=== PATIENT | female | born 1990 | race Caucasian/White ===

== ENCOUNTER 2016-09-23 11:42 | Emergency (ER) | payer MEDICAID ==
[2016-09-23 11:52] VITALS: O2SAT 98
[2016-09-23] MEDS ORDERED: oxyCODONE IR 5 MG TAB PO ONE (12:08)
--- NOTE | 2016-09-23 12:13 | EDPHY ---
H & P Time Seen by Provider: 09/23/16 11:57 HPI/ROS: CHIEF COMPLAINT: Right hand and wrist pain HISTORY OF PRESENT ILLNESS: 26-year-old [id number] female complaining of acute right ulnar hand and wrist pain after she in a mechanical fall last evening. No head injury. No paresthesia. No sensory deficit. PHYSICAL EXAM (Prior to examination, patient consented to physical exam, hands were washed and my usual and customary physical exam procedures followed) 1) GENERAL: Well-developed, well-nourished, alert and oriented. Appears to be in no acute distress. 2) HEAD: Normocephalic 3) HEENT: Pupils equal, round, reactive to light bilaterally. 4) LUNGS: Breathing comfortably. 5) MUSCULOSKELETAL: Soft compartments. Ecchymosis right 5th metacarpal and right ulnar wrist. Associated tenderness to same location. 6) SKIN: intact 7) VASCULAR: pulses and cap refill present are brisk 8) NEUROLOGIC: Radial, ulnar, median nerve function intact with no deficits appreciated on exam DIFFERENTIAL DIAGNOSIS: in no particular order including but not limited to fracture, sprain, compartment syndrome Xray of the right hand and wrist interpreted by myself: no definitive acute osseous abnormality Procedure: Splint And ulna Ortho Glasssplint was applied by ER marine electronics technician. After application of the splint I returned and re-examined the patient. The splint was adequately immobilizing the joint and distal to the splint the patient's circulation and sensation were intact. Patient shows no signs of compartment syndrome. Was given orthopedic precautions. Smoking Status: Never smoked Constitutional: Initial Vital Signs Temperature (C) 36.2 C 09/23/16 11:50 Heart Rate 100 09/23/16 11:50 Respiratory Rate 15 09/23/16 11:50 Blood Pressure 111/78 09/23/16 11:50 O2 Sat (%) 98 09/23/16 11:50 O2 Delivery Mode Room Air Allergies/Adverse Reactions: acetaminophen [From Tylenol] Allergy (Verified 09/23/16 11:52) amoxicillin Allergy (Verified 09/23/16 11:53) hydrocodone [From Vicodin] Allergy (Verified 09/23/16 11:53) latex Allergy (Verified 09/23/16 11:53) shellfish derived Allergy (Verified 09/23/16 11:53) ibprofen Allergy (Uncoded 09/23/16 11:52) Home Medications: Medication Instructions Recorded Neurontin 09/23/16 Oxycodone HCl [Oxyir] 5 mg PO Q6 PRN #10 capsule 09/23/16 Sulfacetamide Sodium 09/23/16 MDM/Departure - MDM Imaging Results: Imaging Impressions Hand X-Ray 09/23/16 11:57 Impression: Acute minimally angulated distal fifth metacarpal fracture. Wrist X-Ray 09/23/16 11:57 Impression: 1. Normal wrist. 2. Acute minimally angulated distal fifth metacarpal fracture. Images reviewed by myself Medications Given: Discontinued Medications Oxycodone HCl (Oxycodone Ir) 5 mg PO EDNOW ONE Stop: 09/23/16 12:09 Last Admin: 09/23/16 12:17 Dose: 5 mg - Depart Disposition: Home, Routine, Self-Care Clinical Impression: Hand fracture, right Qualifiers: Encounter type: initial encounter Fracture type: closed Qualified Code(s): S62.91XA - Unspecified fracture of right wrist and hand, initial encounter for closed fracture Condition: Good Instructions: Hand Fracture (ED) Additional Instructions: Return to the ER immediately if you experience discoloration, have worsening pain, numbness, tingling, or any other symptoms that concern you. If you received x-rays in the emergency department today, be advised, that ligamentous , tendon, muscular, and other non-bony injury cannot be fully ruled out. Try to keep your affected extremity elevated above the level of your chest, and keep cold packs on the affected area, for the next 48 hours. Prescriptions: Oxycodone HCl [Oxyir] 5 mg PO Q6 PRN #10 capsule PRN Reason: Pain, Severe Able To Take Po Referrals: Araseli Urena MD [Medical Doctor] - 1-2 days without fail
[2016-09-23 13:15] VITALS: BP 101/77; PULSE 68; RESP 16; TEMP 98.2
== END 2016-09-23 13:15 | disposition home or self-care (01) ==
DX: S62.91XA Unspecified fracture of right hand, initial encounter for closed fracture (principal); Z91.040 Latex allergy status; W18.39XA Other fall on same level, initial encounter